=== PATIENT | female | born 1960 | race Two or more races ===

== ENCOUNTER 2021-04-09 06:11 | Day surgery (SDC) | payer OTHER ==
[~2021-04-09 06:11] MED LIST: AVAPRO300 MG; TOPROL XL100 M1; VISTARIL25 MG PO
== END 2021-04-09 11:00 | disposition home or self-care (01) ==
LOC: AMB-ENDOS 06:11
PROVIDERS: ATTEND Surgery
DX: R19.4 Change in bowel habit (principal)